=== PATIENT | male | born 1950 | race Caucasian/White ===

== ENCOUNTER 2016-08-13 10:36 | Inpatient (IN) | payer OTHER ==
[2016-08-10 12:11] LABS: BASOPHILS 0.3 %; BASOPHILS ABSOLUTE 0.03 10/3/uL (0.0-0.16); HEMATOCRIT 42.9 % (40.0-51.0); HEMOGLOBIN 14.3 g/dL (13.6-17.8); IMMATURE GRANULOCYTES 0.3 %; IMMATURE GRANULOCYTES ABSOLUTE 0.03 10/3/uL (0.0-0.11); LYMPHOCYTES 21.5 %; LYMPHOCYTES ABSOLUTE 2.13 10/3/uL (0.67-4.30); MEAN CORPUS HGB CONC 33.3 g/dL (32.0-36.0); MEAN CORPUSCULAR HEMOGLOB 26.8 pg (26.0-34.0); MEAN CORPUSCULAR VOLUME 80.3 fL (80-100); MEAN PLATELET VOLUME 9.9 fL (9.2-13.0); MONOCYTES 7.6 %; MONOCYTES ABSOLUTE 0.75 10/3/uL (0.21-1.20); NEUTROPHILS 65.3 %; NEUTROPHILS ABSOLUTE 6.47 10/3/uL (2.02-8.40); PLATELET COUNT 453 10/3/uL (150-400); RBC DISTRIBUTION WIDTH 15.7 % (12.0-16.0); RED CELL COUNT 5.34 10/6/uL (4.7-6.1); WHITE BLOOD CELLS 9.9 10/3/uL (4.5-10.5)
[2016-08-10 12:12] LABS: MANUAL DIFF NO %
[2016-08-10 12:25] LABS: PROTIME (NOT ORD) 13.2 SEC (12.0-14.5)
[2016-08-10 12:26] LABS: PARTIAL THROMBO TIME 35.4 SEC (22.5-37.2)
[2016-08-10 12:28] LABS: ALBUMIN 3.9 G/DL (3.5-5.0); ALKALINE PHOSPHATASE 72 U/L (45-117); BUN (BLOOD UREA NITROGEN) 23 MG/DL (6-23); CHLORIDE, SERUM 104 MMOL/L (96-112); CREATININE 1.08 MG/DL (0.70-1.30); GFR AFRICAN AMERICAN 82 ML/MIN (>=60); GFR NON AFRICAN AMERICAN 71 ML/MIN (>=60); POTASSIUM, SERUM 4.5 MMOL/L (3.5-5.3); SGOT(AST) 14 U/L (5-40); SGPT(ALT) 22 U/L (5-65); TOTAL BILIRUBIN 0.3 MG/DL (0-1.2)
[2016-08-10 12:31] LABS: CALCIUM, SERUM 10.3 MG/DL (8.5-10.4); CO2 (CARBON DIOXIDE) 27 MMOL/L (24-34); GLOBULIN 4.1 G/DL (2.5-4.1); GLUCOSE, SERUM 108 MG/DL (60-99); SODIUM, SERUM 140 MMOL/L (135-148)
--- NOTE | ~2016-08-13 | HP ---
History And Physical [place] [id number] [facility] [place]. [address] NAME: LIZ HAILE : 50 STATUS : ADM IN [facility]#: [id number] AGE: 66 ADM/REG DATE : 08/13/16 MR#: [id number] REPORT SERV DATE: 08/13/16 DICTATED BY: KAL SHEEHAN DATE: 08/13/16 REPORT STATUS : Draft TRANSCRIBED BY: MODL DATE: 08/13/16 DATE OF ADMISSION: 08/13/2016 CHIEF COMPLAINT: Right kidney mass. HISTORY OF PRESENT ILLNESS: Mr. Henriquez is a 66-year-old with recent gross hematuria. He had been having abdominal pain. He was evaluated in the office. CT scan was performed with a surprise finding of a 16 cm right upper pole renal mass. There was some shotty adenopathy, but no evidence of any gross metastatic disease. He has had intermittent hematuria. PAST MEDICAL HISTORY: Hypertension. PAST SURGICAL HISTORY: Pacemaker insertion in 2013. MEDICATIONS: Lisinopril and acyclovir. ALLERGIES: BACTRIM. SOCIAL HISTORY: . One pack-a-day smoker, he is trying to quit. FAMILY HISTORY: Lung cancer. REVIEW OF SYSTEMS: Positive for indigestion, tinnitus, and intermittent gross hematuria. Recently had an infected tooth on his right upper jaw. This was treated with Augmentin. No fevers. No dysuria. No chest pain. No shortness of breath. PHYSICAL EXAMINATION: VITAL SIGNS: Per intake sheet. GENERAL: Pleasant, chronically ill-appearing, 66-year-old appearing older than stated age, in no acute distress. HEENT: Sclerae anicteric. LUNGS: Clear. HEART: Regular rhythm. CHEST: Clear anteriorly. ABDOMEN: Soft, nontender, nondistended. Right upper quadrant shows a nontender mass. Bladder is not distended. EXTREMITIES: No lower extremity edema. NEUROLOGIC: He is oriented to person, place, time, and situation. LABORATORY DATA: Voided urine is clear. Creatinine 1.0. Hematocrit 43 and platelets 450. PSA from May was 5.96. PSA from July 6.6 with a percentage free PSA of 25. IMAGING: CT scan dated 07/24/2016 shows a heterogeneous 16 cm mass at right upper pole of the kidney. There is no renal vein involvement. There is perinephric stranding as well as scattered lymph nodes, all less than 1 cm. History And Physical [facility] [address] [place]. [address] NAME: LIZ HAILE : 50 STATUS : ADM IN PAT#: [id number] AGE: 66 ADM/REG DATE : 08/13/16 MR#: [id number] REPORT SERV DATE: 08/13/16 DICTATED BY: KAL SHEEHAN DATE: 08/13/16 REPORT STATUS : Draft TRANSCRIBED BY: MODL DATE: 08/13/16 IMPRESSION: 1. Right renal mass, likely T3 N0 M0 renal cell carcinoma. 2. Gross hematuria likely secondary to #1. 3. Elevated PSA. PLAN: 1. Mr. Haile understands the likely diagnosis of a locally advanced renal cell carcinoma. He will undergo right open radical nephrectomy. I used a chevron incision for exposure. Risks of bleeding, infection, tumor recurrence, injury to nearby organs, and benign pathologic findings have been discussed. He agrees to proceed. 2. His PSAs elevated in lieu of the large right renal mass. We have decided to merely not to pursue prostate needle biopsy at this time. He will have a PSA repeated in six months or so, assuming that he is doing well from his renal surgery. [facility]/MILADIS Kal Sheehan M.D. / [id number] CC: Meeta Trujillo DO
--- NOTE | ~2016-08-13 | OP ---
Record Of Operation [facility] [address] [place]. [address] NAME: LIZ HAILE : 50 STATUS : ADM IN PAT#: [id number] AGE: 66 ADM/REG DATE : 08/13/16 MR#: [id number] REPORT SERV DATE: 08/13/16 DICTATED BY: KAL SHEEHAN DATE: 08/13/16 REPORT STATUS : Draft TRANSCRIBED BY: MODL DATE: 08/13/16 DATE OF PROCEDURE: 08/13/2016 PREOPERATIVE DIAGNOSIS: Right renal mass. POSTOPERATIVE DIAGNOSIS: Right renal mass. PROCEDURE PERFORMED: Right open radical nephrectomy. SURGEON: Kal Sheehan M.D. CATERING TRUCK DRIVER: Mrs. Granadoser. ANESTHESIA: General. ESTIMATED BLOOD LOSS: 600 mL. COMPLICATIONS: Pleurotomy/rent in the diaphragm was closed primarily. SPECIMEN: Right kidney with proximal ureter and adrenal gland. DRAINS: Waldrop catheter, Yasmany Jackson. INDICATION: Mr. Haile is a 66-year-old, who was evaluated for gross hematuria. He is found to have a large 16 cm right upper pole renal mass. There was shoddy adenopathy, but no gross metastatic disease. His creatinine is 1.0. Platelet count is elevated. He presents for right open radical nephrectomy. TECHNIQUE: Informed consent was obtained, he received Ancef preop, he was brought to the operating, and general anesthesia was administered. Waldrop catheter was placed. He was kept supine in the bed and was flexed. A chevron incision was made with Bovie, the peritoneal cavity was entered, having divided the abdominal wall musculature. There was no gross peritoneal disease. The liver was draped over the large right kidney. I incised the white line of Toldt to mobilize the ascending and transverse colon. The bowel was packed away. Dissection was carried out anteriorly toward the renal hilum. Once the hilar vessels were identified, I dissected inferiorly along the vena cava. The ureter was identified, it was clipped and divided. There were some simple cysts inferiorly in the kidney and these were drained. At the renal hilum, I dissected several branches of the renal vein. These were tied off and were clipped. The main renal vein was circumferentially mobilized. Posterior to this, I palpated two renal arteries with some difficulty. These were both mobilized and transected with a vascular load of the Endo-YARELY. Next, I took down the lateral attachments up to the upper pole of the kidney. The mass was very large, it actually was fused to the underside of the liver. This dissection was performed with Bovie and Harmonic scalpel. At this point, I divided the renal vein, this hilar transection was also hemostatic. The superomedial dissection was carried out just lateral to the vena cava. The adrenal vein was doubly clipped and divided. The adrenal gland was taken with the specimen. The remaining Record Of Operation [facility] [address] [place] [address] NAME: LIZ HAILE : 50 STATUS : ADM IN PAT#: [id number] AGE: 66 ADM/REG DATE : 08/13/16 MR#: [id number] REPORT SERV DATE: 08/13/16 DICTATED BY: KAL SHEEHAN DATE: 08/13/16 REPORT STATUS : Draft TRANSCRIBED BY: MODL DATE: 08/13/16 of the upper pole of the kidney was adherent to both the liver and to the diaphragm posteriorly. A 3 cm rent in the diaphragm was created during this dissection. Visibly normal lung was visualized. The remaining attachments were divided with Harmonic scalpel and clips. The specimen was marked with a long suture at the liver margin. The wound was irrigated. Hemostasis was confirmed. I closed the rent in the diaphragm/pleura with running #1 Vicryl. A red rubber catheter was placed with the tip and any pleural air was evacuated with a water seal. The sutures were tied as the red rubber was removed. Sponge and needle counts were correct. I placed Surgicel against the portion of the liver that had been adherent to the upper pole of the kidney. Hemostasis was confirmed. I placed a Yasmany-Jackson through a separate stab incision inferiorly. This was placed in the right renal fossa. I closed the abdominal wall fascia in two layers with running #1 PDS suture, with additional 0 Vicryl internal retention sutures. The wound was irrigated at all levels of closure. The skin was closed with clips. He was taken the recovery room still intubated. We will check a chest x-ray prior to extubation. [facility] Kal Sheehan M.D. / [id number] CC: Kal Sheehan M.D.
--- NOTE | ~2016-08-13 | CN ---
Consultation Report [facility] [address] [place]. [address] NAME: LIZ HERNANDEZ : 50 STATUS : ADM IN PAT#: [id number] AGE: 66 ADM/REG DATE : 08/13/16 MR#: [id number] REPORT SERV DATE: 08/24/16 DICTATED BY: ROLANDA SIMON DATE: 08/24/16 REPORT STATUS : Draft TRANSCRIBED BY: MODL DATE: 08/24/16 INFECTIOUS DISEASE CONSULT DATE OF CONSULTATION: REFERRING PHYSICIAN: Dr. Roberts. REASON FOR EVALUATION: Treatment of left arm possible cellulitis. HISTORY OF PRESENT ILLNESS: The patient is a 66-year-old male who has history of hypertension, a pacemaker. 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 Postoperatively, he has had difficulty with ileus that is better, a sore tooth for which he received a few days of Augmentin in the last two days for a painful left upper arm at the site of an IV that infiltrated according to his daughter while he was getting potassium (his daughter is a nurse). He continues to have pain, swelling, and redness there that is slightly expanded in the past few days. There has been no open lesions, no drainage. He has not had any fevers or chills, but his white blood cell count is mildly elevated. He has also begun to experience the redness and pain at the IV site in the other arm now. PAST MEDICAL HISTORY: Otherwise unremarkable. MEDICATIONS: He has been started yesterday on doxycycline. The Augmentin has been stopped. ALLERGIES: HE IS ALLERGIC TO SULFA, WHICH CAUSES A RASH. SOCIAL HISTORY: He is retired, . Family is with him in the room. He does smoke. No history of alcohol or substance abuse. FAMILY HISTORY: Noncontributory. PHYSICAL EXAMINATION: GENERAL: Nontoxic adult, male, in no acute distress. Alert and oriented x3. VITAL SIGNS: His most recent temperature was 98.7, pulse 61, respirations 18, blood pressure 132/64, weight 85 kg. HEENT: Sclerae clear. No oral lesions. LUNGS: Clear. HEART: Regular rate and rhythm. ABDOMEN: Soft, nontender. Positive bowel sounds. EXTREMITIES: The left upper arm shows about 6 cm of induration and redness. It is tender. I do not feel any fluctuance, I do not feel a cord. There is no drainage. No other acute- appearing lesions on the skin or extremities. Consultation Report [facility] [address] [place]. [address] NAME: LIZ HERNANDEZ : 50 STATUS : ADM IN PAT#: [id number] AGE: 66 ADM/REG DATE : 08/13/16 MR#: [id number] REPORT SERV DATE: 08/24/16 DICTATED BY: ROLANDA SIMON DATE: 08/24/16 REPORT STATUS : Draft TRANSCRIBED BY: MILADIS DATE: 08/24/16 LABORATORY DATA: His white blood cell count was, initially when he came in, 10.2, it did rise to 19.6 after surgery, it was back down by 08/18/2016 to 9.4, 11.7 on 08/21/2016, 12.1 on the 08/22/2016, 13.3 on the 08/23/2016, 14.9 today with hematocrit 22.7, platelets 572, 68 segs, 5% bands on the diff. BUN and creatinine 15 and 1.37. Blood cultures were checked yesterday afternoon and those are negative at 24 hours. IMPRESSION: I suspect that this is a chemical thrombophlebitis from the potassium and not a true infection; however, the rising white count is concerning. RECOMMENDATIONS: 1. We will follow up with the blood cultures tomorrow. 2. Cover with Zyvox for now and also remove his other IV, so this does not start another thrombophlebitis. 3. Discussed with the nurse, I asked her to apply heat to the site. 4. Finally, I will follow the patient with you. I appreciate very much your consulting on this patient. [facility]IL[facility] Rolanda Simon M.D. / [id number] CC: Lv Roberts M.D.
--- NOTE | ~2016-08-13 | DS ---
Discharge Summary [facility] [address] [place]. [address] NAME: LIZ HERNANDEZ : 50 STATUS : DIS IN PAT#: [id number] AGE: 66 ADM/REG DATE : 08/13/16 MR#: [id number] REPORT SERV DATE: 09/04/16 DICTATED BY: KAL ROBERTS DATE: 09/04/16 REPORT STATUS : Draft TRANSCRIBED BY: MODLoyd DATE: 09/04/16 Data Collection from hospitalization DISCHARGE DIAGNOSES: 1. Right renal mass. 2. Hypertension. 3. Bradycardia. 4. Former tobacco. CONSULTATIONS: 1. Johnny Denise M.D. 2. Ramiro Gaytan MD. PROCEDURES: Right open radical nephrectomy on 08/13/2016. 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 No tumor seen. DISCHARGE MEDICATIONS: Tylenol caplet 1000 mg every four hours as needed, Zovirax 400 mg twice a day-do not resume for two weeks, vitamin C 2000 mg daily-do not resume for two weeks, Zyvox 600 mg every 12 hours, Prinivil 20 mg daily, Centrum tablets one tablet daily, Percocet 7.5/325 one tablet every six hours as needed. CONDITION AT DISCHARGE: Stable. DISPOSITION: The patient was discharged home on a soft diet with activities as instructed. He would follow up with me on 09/04/2016, and will follow up with his primary care provider as needed. HOSPITAL COURSE: This is a 66-year-old man, who has had a recent gross hematuria. He had been having abdominal pain. He was evaluated in the office. A CT scan was performed with a surprise finding of a 16 cm right upper pole renal mass. There was some shoddy adenopathy, but no evidence of any gross metastatic disease. He has had intermittent hematuria. The right renal mass was felt likely to be T3, N0, M0 renal cell carcinoma. Treatment options were discussed and it was elected to proceed with surgical intervention. He was admitted to the hospital at this time for further evaluation and treatment. Upon admission, he was taken to the operating room, where he underwent the above-mentioned procedure. He tolerated this well. There were no complications. On postop day #1, he had good pain control. Chest x-ray showed no pneumothorax. His lungs were clear. Dulcolax was given. Heparin was continued. On postop day #2, his epidural rate was increased, due to inadequate analgesia. He was ambulatory. His diet was advanced. On 08/16/2016, he did complain of hiccups. His white count was 19.6. White blood cell count remained elevated. There were no obvious signs of infection. The epidural catheter was removed and the tip was intact. On 08/17/2016, he still complained of hiccups. He was passing flatus. Over the next couple Discharge Summary [place] [id number] [facility] [place]. [address] NAME: LIZ HERNANDEZ : 50 STATUS : DIS IN PAT#: [id number] AGE: 66 ADM/REG DATE : 08/13/16 MR#: [id number] REPORT SERV DATE: 09/04/16 DICTATED BY: KAL ROBERTS DATE: 09/04/16 REPORT STATUS : Draft TRANSCRIBED BY: MILADIS DATE: 09/04/16 of days, he continued to do well. He did have a bowel movement. Blood cell count decreased to 9.4. Pathology results were reviewed. He had a couple of episodes of vomiting. The NG tube was placed. He was felt to have an ileus versus partial small bowel obstruction. On 08/21/2016, he said he was feeling better. He was seen by Dr. Ramiro Gaytan. At this time, the patient's chief complaint was nausea, vomiting, questionable small bowel obstruction versus ileus. 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 He was convalescing well from surgery. On the day previously he had started having projectile vomiting and an NG tube had been placed. He now felt better. He had no nausea or vomiting. Abdominal pain was improving. He did not feel grossly distended. He was passing flatus. His bowel movements were loose. White blood cell count was 11.7. Creatinine level was 1.5. We would keep the NG tube to low intermittent suction. We would await return of bowel function. NG tube clamping trial was going to be performed. He would be re-evaluated with radiography and physical exam. The next day, he had a couple of bowel movements. He had no nausea. The NG tube was clamped. His abdomen was soft. He had positive bowel sounds. He was tolerating his diet. On 08/23/2016, white blood cell count continued to increase. He was eating well. He had no abdominal pain. The infiltration site of a previous IV in his left upper arm was inflamed and very tender. The erythema had advanced around the arm since the day previously despite ice packs and moving the IV. He was afebrile. Blood cultures were obtained. Augmentin was started. White blood cell count was 13. The next day, he was seen by Dr. Johnny Denise regarding treatment of left arm possible cellulitis. Postoperatively, he had difficulty with ileus which had improved. He had a sore tooth for which he had received a few days of Augmentin, and over the past two days, he has a painful left upper arm at the IV site. According to his daughter, he has been receiving potassium. He continued to have pain, swelling, and redness there that was slightly expanded over the past few days. There were no open lesions or drainage. He had also started to experience the redness and pain at the IV site in the other arm at this time. White count was now 14.9. It was suspected that this was chemical thrombophlebitis from the potassium and not a true infection, however, the rising white count was concerning. Followup blood cultures would be checked. He would also be covered with Zyvox for now and we would remove the other IV, so, this does not start another thrombophlebitis. Heat was going to be applied to the site. Discharge planning was performed. On 08/25/2016, he was feeling better. He was afebrile. White count was 13.5. Discharge instructions were given. Due to his improved and stable condition, he was discharged home with the above-stated instructions. Information collected by: Denise Hansen I submit the above information as my discharge summary. [facility] Kal Roberts M.D. / [id number] CC: Kal Roberts M.D. Discharge Summary [address] [address] NAME: LIZ HERNANDEZ : 50 STATUS : DIS IN PAT#: [id number] AGE: 66 ADM/REG DATE : 08/13/16 MR#: [id number] REPORT SERV DATE: 09/04/16 DICTATED BY: KAL ROBERTS DATE: 09/04/16 REPORT STATUS : Draft TRANSCRIBED BY: MODL DATE: 09/04/16 DO Ramiro Andujar MD Mark Anderson, M.D.
--- NOTE | ~2016-08-13 | CN ---
Consultation Report [facility] [address] [place]. [address] NAME: LIZ HERNANDEZ : 50 STATUS : ADM IN [facility]#: [id number] AGE: 66 ADM/REG DATE : 08/13/16 MR#: [id number] REPORT SERV DATE: 08/21/16 DICTATED BY: OSWALDO GAYTAN DATE: 08/21/16 REPORT STATUS : Draft TRANSCRIBED BY: MODL DATE: 08/21/16 GENERAL SURGERY CONSULTATION AND H AND P DATE OF CONSULTATION: 08/21/2016 CHIEF COMPLAINT: Nausea, vomiting, questionable small-bowel obstruction versus ileus. HISTORY OF PRESENT ILLNESS: This is a 66-year-old male, who is now postop day 8 from an open right radical nephrectomy. Pathology revealed oncocytoma. The patient was convalescing well from the surgery and then yesterday, he began to have projectile vomiting, and NG tube was placed. The patient now feels better, having no nausea or vomiting. Abdominal pain is improving from the surgery. He does not feel grossly distended. He is passing flatus, and he had three bowel movements a day per the patient. They were loose. He has no fever or chills. No shortness of breath or chest pain. REVIEW OF SYSTEMS: All systems reviewed and negative except as mentioned in the HPI. ALLERGIES: BACTRIM. PAST MEDICAL HISTORY: Hypertension and bradycardia, tooth abscess. PAST SURGICAL HISTORY: Pacemaker insertion in 2013 for bradycardia, EGD for ulcer disease, right inguinal hernia repair, and umbilical hernia repair and procedure listed above. SOCIAL HISTORY: Positive for tobacco for 20 plus years. No alcohol. No drugs. He is a evan, does construction work. FAMILY HISTORY: His mother had lung cancer. His father had coronary artery disease. MEDICATIONS: Lisinopril and acyclovir. REVIEW OF SYSTEMS: A 12 systems reviewed and negative except as mentioned in the HPI. PHYSICAL EXAMINATION: VITAL SIGNS: Temperature is 98.7, blood pressure 160/68, pulse is 70, O2 sats of 96% on room air. GENERAL: A well-developed, well-nourished, no acute distress, white male. HEENT: Normocephalic and atraumatic. PERRLA. EOMI. Mucous membranes are moist. NECK: No lymphadenopathy. Trachea midline. CARDIOVASCULAR: Regular rate and rhythm. LUNGS: Clear to auscultation bilaterally. ABDOMEN: Soft, nondistended. It is protuberant and has appropriate tenderness to palpation Consultation Report [facility] [address] [place]. [address] NAME: LIZ HERNANDEZ : 50 STATUS : ADM IN PAT#: [id number] AGE: 66 ADM/REG DATE : 08/13/16 MR#: [id number] REPORT SERV DATE: 08/21/16 DICTATED BY: OSWALDO GAYTAN DATE: 08/21/16 REPORT STATUS : Draft TRANSCRIBED BY: MODLoyd DATE: 08/21/16 secondary to surgery. Bowel sounds are hypoactive. EXTREMITIES: No clubbing, cyanosis, or edema. 2+ pulses. MUSCULOSKELETAL: Moves all extremities well. NEURO: Cranial nerves 2 through 12 intact. A and O x3. LABS: Multiple x-rays has been performed which shows small bowel dilation and some air fluid levels. Today CBC; 11.7, hematocrit 25.2, platelets 580. Electrolytes; sodium 139, potassium 3.7, chloride 104, bicarb 28, BUN 22, creatinine 1.5, glucose 120, calcium 8.7, magnesium 2.2. ASSESSMENT AND PLAN: This is a 66-year-old male, who has most likely an ileus. PLAN: Keep n.p.o., keep NG tube to low intermittent more suction. We will await return of bowel function. We will start patient on NG tube clamping trial and see how he does and re- evaluate with radiography and physical exam. DICTATED BY: MD TEJAS [facility]/MILADIS Oswaldo Gaytan MD / [id number] CC: Meeta Trujillo DO
[~2016-08-13 10:36] MED LIST: ACET500CAP PO; CENTRUM PO; PRIN20 PO; VALTREX5 PO; VITC500 PO; ZOVIRAX400 MG PO
[2016-08-14 06:51] LABS: BASOPHILS 0.2 %; BASOPHILS ABSOLUTE 0.02 10/3/uL (0.0-0.16); EOSINOPHILS 0.5 %; EOSINOPHILS ABSOLUTE 0.05 10/3/uL (0.0-0.53); IMMATURE GRANULOCYTES 0.4 %; IMMATURE GRANULOCYTES ABSOLUTE 0.04 10/3/uL (0.0-0.11); LYMPHOCYTES 18.1 %; LYMPHOCYTES ABSOLUTE 1.84 10/3/uL (0.67-4.30); MEAN CORPUS HGB CONC 32.2 g/dL (32.0-36.0); MEAN CORPUSCULAR HEMOGLOB 26.3 pg (26.0-34.0); MEAN CORPUSCULAR VOLUME 81.8 fL (80-100); MEAN PLATELET VOLUME 9.9 fL (9.2-13.0); MONOCYTES 7.9 %; MONOCYTES ABSOLUTE 0.81 10/3/uL (0.21-1.20); NEUTROPHILS 72.9 %; NEUTROPHILS ABSOLUTE 7.43 10/3/uL (2.02-8.40); PLATELET COUNT 345 10/3/uL (150-400); RBC DISTRIBUTION WIDTH 15.6 % (12.0-16.0); WHITE BLOOD CELLS 10.2 10/3/uL (4.5-10.5)
[2016-08-14 06:53] LABS: CHLORIDE, SERUM 108 MMOL/L (96-112); CREATININE 1.56 MG/DL (0.70-1.30); GFR AFRICAN AMERICAN 53 ML/MIN (>=60); GFR NON AFRICAN AMERICAN 46 ML/MIN (>=60); GLUCOSE, SERUM 102 MG/DL (60-99); HEMATOCRIT 34.5 % (40.0-51.0); HEMOGLOBIN 11.1 g/dL (13.6-17.8); MANUAL DIFF NO %; POTASSIUM, SERUM 4.1 MMOL/L (3.5-5.3); RED CELL COUNT 4.22 10/6/uL (4.7-6.1); SODIUM, SERUM 139 MMOL/L (135-148)
[2016-08-14 06:55] LABS: BUN (BLOOD UREA NITROGEN) 19 MG/DL (6-23); CO2 (CARBON DIOXIDE) 22 MMOL/L (24-34)
[2016-08-15 07:34] LABS: HEMATOCRIT 34.3 % (40.0-51.0); HEMOGLOBIN 11.1 g/dL (13.6-17.8)
[2016-08-15 07:47] LABS: BUN (BLOOD UREA NITROGEN) 15 MG/DL (6-23); CALCIUM, SERUM 8.5 MG/DL (8.5-10.4); CHLORIDE, SERUM 106 MMOL/L (96-112); CO2 (CARBON DIOXIDE) 22 MMOL/L (24-34); CREATININE 1.64 MG/DL (0.70-1.30); GFR AFRICAN AMERICAN 50 ML/MIN (>=60); GFR NON AFRICAN AMERICAN 43 ML/MIN (>=60); GLUCOSE, SERUM 128 MG/DL (60-99); POTASSIUM, SERUM 4.4 MMOL/L (3.5-5.3); SODIUM, SERUM 136 MMOL/L (135-148)
[2016-08-16 06:27] LABS: BASOPHILS 0.1 %; BASOPHILS ABSOLUTE 0.02 10/3/uL (0.0-0.16); EOSINOPHILS 0.2 %; EOSINOPHILS ABSOLUTE 0.03 10/3/uL (0.0-0.53); HEMATOCRIT 33.3 % (40.0-51.0); HEMOGLOBIN 10.9 g/dL (13.6-17.8); IMMATURE GRANULOCYTES 0.4 %; IMMATURE GRANULOCYTES ABSOLUTE 0.08 10/3/uL (0.0-0.11); LYMPHOCYTES 9.2 %; MANUAL DIFF NO %; MEAN CORPUS HGB CONC 32.7 g/dL (32.0-36.0); MEAN CORPUSCULAR HEMOGLOB 26.1 pg (26.0-34.0); MEAN CORPUSCULAR VOLUME 79.9 fL (80-100); MEAN PLATELET VOLUME 9.7 fL (9.2-13.0); MONOCYTES 9.2 %; NEUTROPHILS 80.9 %; NEUTROPHILS ABSOLUTE 15.83 10/3/uL (2.02-8.40); PLATELET COUNT 380 10/3/uL (150-400); RBC DISTRIBUTION WIDTH 15.7 % (12.0-16.0); RED CELL COUNT 4.17 10/6/uL (4.7-6.1); WHITE BLOOD CELLS 19.6 10/3/uL (4.5-10.5)
[2016-08-16 06:38] LABS: BUN (BLOOD UREA NITROGEN) 27 MG/DL (6-23); CHLORIDE, SERUM 104 MMOL/L (96-112); CO2 (CARBON DIOXIDE) 25 MMOL/L (24-34); CREATININE 2.05 MG/DL (0.70-1.30); GFR AFRICAN AMERICAN 38 ML/MIN (>=60); GFR NON AFRICAN AMERICAN 33 ML/MIN (>=60); GLUCOSE, SERUM 131 MG/DL (60-99); POTASSIUM, SERUM 4.7 MMOL/L (3.5-5.3); SODIUM, SERUM 137 MMOL/L (135-148)
[2016-08-17 05:36] LABS: BASOPHILS 0.1 %; BASOPHILS ABSOLUTE 0.02 10/3/uL (0.0-0.16); EOSINOPHILS 0.7 %; EOSINOPHILS ABSOLUTE 0.12 10/3/uL (0.0-0.53); HEMOGLOBIN 9.4 g/dL (13.6-17.8); IMMATURE GRANULOCYTES 0.5 %; LYMPHOCYTES 8.9 %; LYMPHOCYTES ABSOLUTE 1.61 10/3/uL (0.67-4.30); MEAN CORPUS HGB CONC 32.4 g/dL (32.0-36.0); MEAN CORPUSCULAR HEMOGLOB 25.9 pg (26.0-34.0); MEAN CORPUSCULAR VOLUME 79.9 fL (80-100); MEAN PLATELET VOLUME 10.3 fL (9.2-13.0); MONOCYTES 9.6 %; MONOCYTES ABSOLUTE 1.74 10/3/uL (0.21-1.20); NEUTROPHILS 80.2 %; PLATELET COUNT 415 10/3/uL (150-400); RBC DISTRIBUTION WIDTH 15.4 % (12.0-16.0); RED CELL COUNT 3.63 10/6/uL (4.7-6.1); WHITE BLOOD CELLS 18.2 10/3/uL (4.5-10.5)
[2016-08-17 05:41] LABS: MANUAL DIFF NO %
[2016-08-18 07:02] LABS: BASOPHILS 0.1 %; BASOPHILS ABSOLUTE 0.01 10/3/uL (0.0-0.16); EOSINOPHILS 2.5 %; EOSINOPHILS ABSOLUTE 0.24 10/3/uL (0.0-0.53); HEMOGLOBIN 8.6 g/dL (13.6-17.8); IMMATURE GRANULOCYTES 0.3 %; IMMATURE GRANULOCYTES ABSOLUTE 0.03 10/3/uL (0.0-0.11); LYMPHOCYTES 14.3 %; LYMPHOCYTES ABSOLUTE 1.35 10/3/uL (0.67-4.30); MEAN CORPUS HGB CONC 33.1 g/dL (32.0-36.0); MEAN CORPUSCULAR HEMOGLOB 26.5 pg (26.0-34.0); MEAN PLATELET VOLUME 9.5 fL (9.2-13.0); MONOCYTES 9.8 %; MONOCYTES ABSOLUTE 0.92 10/3/uL (0.21-1.20); NEUTROPHILS ABSOLUTE 6.88 10/3/uL (2.02-8.40); PLATELET COUNT 454 10/3/uL (150-400); RBC DISTRIBUTION WIDTH 15.4 % (12.0-16.0); RED CELL COUNT 3.25 10/6/uL (4.7-6.1)
[2016-08-18 07:06] LABS: MANUAL DIFF NO %; WHITE BLOOD CELLS 9.4 10/3/uL (4.5-10.5)
[2016-08-18 07:09] LABS: CALCIUM, SERUM 8.6 MG/DL (8.5-10.4); CHLORIDE, SERUM 104 MMOL/L (96-112); CO2 (CARBON DIOXIDE) 24 MMOL/L (24-34); CREATININE 1.69 MG/DL (0.70-1.30); GFR AFRICAN AMERICAN 48 ML/MIN (>=60); GFR NON AFRICAN AMERICAN 41 ML/MIN (>=60); POTASSIUM, SERUM 4.3 MMOL/L (3.5-5.3); SODIUM, SERUM 137 MMOL/L (135-148)
[2016-08-18 07:10] LABS: BUN (BLOOD UREA NITROGEN) 40 MG/DL (6-23); GLUCOSE, SERUM 95 MG/DL (60-99)
[2016-08-19 06:31] LABS: HEMATOCRIT 25.5 % (40.0-51.0); HEMOGLOBIN 8.3 g/dL (13.6-17.8)
[2016-08-21 06:35] LABS: HEMATOCRIT 25.2 % (40.0-51.0); HEMOGLOBIN 8.4 g/dL (13.6-17.8); MEAN CORPUS HGB CONC 33.3 g/dL (32.0-36.0); MEAN CORPUSCULAR HEMOGLOB 26.3 pg (26.0-34.0); MEAN CORPUSCULAR VOLUME 78.8 fL (80-100); MEAN PLATELET VOLUME 8.9 fL (9.2-13.0); PLATELET COUNT 580 10/3/uL (150-400); RBC DISTRIBUTION WIDTH 15.3 % (12.0-16.0); WHITE BLOOD CELLS 11.7 10/3/uL (4.5-10.5)
[2016-08-21 06:39] LABS: MANUAL DIFF YES %
[2016-08-21 06:50] LABS: CALCIUM, SERUM 8.7 MG/DL (8.5-10.4); CHLORIDE, SERUM 104 MMOL/L (96-112); CO2 (CARBON DIOXIDE) 28 MMOL/L (24-34); GFR AFRICAN AMERICAN 55 ML/MIN (>=60); GFR NON AFRICAN AMERICAN 48 ML/MIN (>=60); POTASSIUM, SERUM 3.7 MMOL/L (3.5-5.3); SODIUM, SERUM 139 MMOL/L (135-148)
[2016-08-21 06:51] LABS: BUN (BLOOD UREA NITROGEN) 22 MG/DL (6-23); GLUCOSE, SERUM 120 MG/DL (60-99)
[2016-08-21 07:11] LABS: BAND NEUTROPHILS 11 %; EOSINOPHILS 1 %; EOSINOPHILS ABSOLUTE (CALC) 0.12 10/3/uL (0.0-0.53); IMMATURE GRANS ABSOLUTE (CALC) 0.12 10/3/uL (0.0-0.11); LYMPHOCYTES 6 %; METAMYELOCYTES 1 %; MONOCYTES 5 %; MONOCYTES ABSOLUTE (CALC) 0.59 10/3/uL (0.21-1.20); NEUTROPHILS ABSOLUTE (CALC) 10.18 10/3/uL (2.02-8.40); PLATELET ESTIMATE SLT INC (ADEQUATE); RBC MORPHOLOGY NORM (NORMAL); SEGMENTED NEUTROPHIL (0) 76 %; TOTAL NUCLEATED CELLS 100
[2016-08-22 06:48] LABS: HEMATOCRIT 25.2 % (40.0-51.0); HEMOGLOBIN 8.4 g/dL (13.6-17.8); MEAN CORPUS HGB CONC 33.3 g/dL (32.0-36.0); MEAN CORPUSCULAR HEMOGLOB 26.8 pg (26.0-34.0); MEAN CORPUSCULAR VOLUME 80.3 fL (80-100); MEAN PLATELET VOLUME 8.8 fL (9.2-13.0); PLATELET COUNT 602 10/3/uL (150-400); RBC DISTRIBUTION WIDTH 15.3 % (12.0-16.0); RED CELL COUNT 3.14 10/6/uL (4.7-6.1); WHITE BLOOD CELLS 12.1 10/3/uL (4.5-10.5)
[2016-08-22 06:52] LABS: MANUAL DIFF YES %
[2016-08-22 07:05] LABS: CALCIUM, SERUM 8.4 MG/DL (8.5-10.4); CHLORIDE, SERUM 107 MMOL/L (96-112); CO2 (CARBON DIOXIDE) 27 MMOL/L (24-34); CREATININE 1.39 MG/DL (0.70-1.30); GFR AFRICAN AMERICAN 61 ML/MIN (>=60); GFR NON AFRICAN AMERICAN 52 ML/MIN (>=60); GLUCOSE, SERUM 114 MG/DL (60-99); POTASSIUM, SERUM 3.7 MMOL/L (3.5-5.3); SGOT(AST) 15 U/L (5-40); SGPT(ALT) 32 U/L (5-65); SODIUM, SERUM 141 MMOL/L (135-148); TOTAL BILIRUBIN 0.2 MG/DL (0-1.2)
[2016-08-22 07:06] LABS: A/G RATIO 0.6 (0.7-1.9); ALBUMIN 2.1 G/DL (3.5-5.0); ALKALINE PHOSPHATASE 90 U/L (45-117); BUN (BLOOD UREA NITROGEN) 15 MG/DL (6-23); GLOBULIN 3.6 G/DL (2.5-4.1); TOTAL PROTEIN 5.7 G/DL (6.0-8.5)
[2016-08-22 07:19] LABS: BAND NEUTROPHILS 11 %; EOSINOPHILS 2 %; EOSINOPHILS ABSOLUTE (CALC) 0.24 10/3/uL (0.0-0.53); IMMATURE GRANS ABSOLUTE (CALC) 0.36 10/3/uL (0.0-0.11); LYMPHOCYTES 17 %; LYMPHOCYTES ABSOLUTE (CALC) 2.06 10/3/uL (0.67-4.30); METAMYELOCYTES 3 %; MONOCYTES 1 %; MONOCYTES ABSOLUTE (CALC) 0.12 10/3/uL (0.21-1.20); NEUTROPHILS ABSOLUTE (CALC) 9.32 10/3/uL (2.02-8.40); PLATELET ESTIMATE INC (ADEQUATE); SEGMENTED NEUTROPHIL (0) 66 %; TOTAL NUCLEATED CELLS 100
[2016-08-22 07:20] LABS: POLYCHROMASIA 1+ (2-5/OIF) (0-1/OIF)
[2016-08-23 05:27] LABS: HEMATOCRIT 25.6 % (40.0-51.0); HEMOGLOBIN 8.3 g/dL (13.6-17.8); MEAN CORPUS HGB CONC 32.4 g/dL (32.0-36.0); MEAN CORPUSCULAR HEMOGLOB 26.3 pg (26.0-34.0); MEAN PLATELET VOLUME 8.6 fL (9.2-13.0); PLATELET COUNT 642 10/3/uL (150-400); RED CELL COUNT 3.16 10/6/uL (4.7-6.1); WHITE BLOOD CELLS 13.3 10/3/uL (4.5-10.5)
[2016-08-23 05:30] LABS: MANUAL DIFF YES %
[2016-08-23 05:45] LABS: BUN (BLOOD UREA NITROGEN) 15 MG/DL (6-23); CALCIUM, SERUM 8.5 MG/DL (8.5-10.4); CHLORIDE, SERUM 106 MMOL/L (96-112); CO2 (CARBON DIOXIDE) 26 MMOL/L (24-34); CREATININE 1.46 MG/DL (0.70-1.30); GFR AFRICAN AMERICAN 57 ML/MIN (>=60); GFR NON AFRICAN AMERICAN 49 ML/MIN (>=60); GLUCOSE, SERUM 111 MG/DL (60-99); POTASSIUM, SERUM 3.6 MMOL/L (3.5-5.3); SODIUM, SERUM 139 MMOL/L (135-148)
[2016-08-23 06:27] LABS: BAND NEUTROPHILS 12 %; BASOPHILS 1 %; BASOPHILS ABSOLUTE (CALC) 0.13 10/3/uL (0.0-0.16); EOSINOPHILS 1 %; EOSINOPHILS ABSOLUTE (CALC) 0.13 10/3/uL (0.0-0.53); HYPOCHROMIA 1+ (3-10/OIF) (0-2/OIF); IMMATURE GRANS ABSOLUTE (CALC) 0.13 10/3/uL (0.0-0.11); LYMPHOCYTES 19 %; LYMPHOCYTES ABSOLUTE (CALC) 2.53 10/3/uL (0.67-4.30); METAMYELOCYTES 1 %; MONOCYTES 2 %; MONOCYTES ABSOLUTE (CALC) 0.27 10/3/uL (0.21-1.20); NEUTROPHILS ABSOLUTE (CALC) 10.11 10/3/uL (2.02-8.40); PLATELET ESTIMATE INC (ADEQUATE); SEGMENTED NEUTROPHIL (0) 64 %; TOTAL NUCLEATED CELLS 100
[2016-08-23 06:28] LABS: POLYCHROMASIA 1+ (2-5/OIF) (0-1/OIF)
[2016-08-24 06:55] LABS: HEMOGLOBIN 7.5 g/dL (13.6-17.8); MEAN CORPUSCULAR HEMOGLOB 26.5 pg (26.0-34.0); MEAN CORPUSCULAR VOLUME 80.2 fL (80-100); MEAN PLATELET VOLUME 8.5 fL (9.2-13.0); PLATELET COUNT 572 10/3/uL (150-400); RBC DISTRIBUTION WIDTH 15.1 % (12.0-16.0); RED CELL COUNT 2.83 10/6/uL (4.7-6.1); WHITE BLOOD CELLS 14.9 10/3/uL (4.5-10.5)
[2016-08-24 06:59] LABS: HEMATOCRIT 22.7 % (40.0-51.0); MANUAL DIFF YES %
[2016-08-24 07:08] LABS: BUN (BLOOD UREA NITROGEN) 15 MG/DL (6-23); CALCIUM, SERUM 8.3 MG/DL (8.5-10.4); CHLORIDE, SERUM 109 MMOL/L (96-112); CO2 (CARBON DIOXIDE) 23 MMOL/L (24-34); CREATININE 1.37 MG/DL (0.70-1.30); GFR AFRICAN AMERICAN 62 ML/MIN (>=60); GFR NON AFRICAN AMERICAN 53 ML/MIN (>=60); GLUCOSE, SERUM 108 MG/DL (60-99); POTASSIUM, SERUM 4.1 MMOL/L (3.5-5.3); SODIUM, SERUM 139 MMOL/L (135-148)
[2016-08-24 07:21] LABS: BAND NEUTROPHILS 5 %; EOSINOPHILS 1 %; EOSINOPHILS ABSOLUTE (CALC) 0.15 10/3/uL (0.0-0.53); IMMATURE GRANS ABSOLUTE (CALC) 0.15 10/3/uL (0.0-0.11); LYMPHOCYTES 17 %; LYMPHOCYTES ABSOLUTE (CALC) 2.53 10/3/uL (0.67-4.30); METAMYELOCYTES 1 %; MONOCYTES 8 %; MONOCYTES ABSOLUTE (CALC) 1.19 10/3/uL (0.21-1.20); NEUTROPHILS ABSOLUTE (CALC) 10.88 10/3/uL (2.02-8.40); SEGMENTED NEUTROPHIL (0) 68 %; TOTAL NUCLEATED CELLS 100
[2016-08-24 07:22] LABS: PLATELET ESTIMATE SLT INC (ADEQUATE); ROULEAUX FORMATION 1+
[2016-08-25 06:41] LABS: HEMATOCRIT 24.5 % (40.0-51.0); MEAN CORPUS HGB CONC 32.7 g/dL (32.0-36.0); MEAN CORPUSCULAR HEMOGLOB 26.4 pg (26.0-34.0); MEAN CORPUSCULAR VOLUME 80.9 fL (80-100); MEAN PLATELET VOLUME 8.9 fL (9.2-13.0); PLATELET COUNT 655 10/3/uL (150-400); RBC DISTRIBUTION WIDTH 15.3 % (12.0-16.0); RED CELL COUNT 3.03 10/6/uL (4.7-6.1); WHITE BLOOD CELLS 13.5 10/3/uL (4.5-10.5)
[2016-08-25 06:47] LABS: MANUAL DIFF YES %
[2016-08-25 07:59] LABS: BAND NEUTROPHILS 11 %; BASOPHILS 2 %; BASOPHILS ABSOLUTE (CALC) 0.27 10/3/uL (0.0-0.16); EOSINOPHILS 2 %; EOSINOPHILS ABSOLUTE (CALC) 0.27 10/3/uL (0.0-0.53); IMMATURE GRANS ABSOLUTE (CALC) 0.14 10/3/uL (0.0-0.11); LYMPHOCYTES 18 %; LYMPHOCYTES ABSOLUTE (CALC) 2.43 10/3/uL (0.67-4.30); METAMYELOCYTES 1 %; MONOCYTES 7 %; MONOCYTES ABSOLUTE (CALC) 0.95 10/3/uL (0.21-1.20); NEUTROPHILS ABSOLUTE (CALC) 9.45 10/3/uL (2.02-8.40); SEGMENTED NEUTROPHIL (0) 59 %; TOTAL NUCLEATED CELLS 100
[2016-08-25 08:00] LABS: PLATELET ESTIMATE INC (ADEQUATE); RBC MORPHOLOGY NORM (NORMAL)
[2016-08-25] MEDS ORDERED: ZYVOXPO PO (09:28)
[2016-08-25] MEDS ORDERED: PERCOCET 7.5/321 TAB PO (09:28)
== END 2016-08-25 14:20 | disposition home or self-care (01) | DRG 657 ==
LOC: SDC/OF 10:36 → PACU 18:34 → 4SO 21:39
PROVIDERS: Urology
PROC: 0GT30ZZ Resection of Right Adrenal Gland, Open Approach (ICD-10-PCS; principal; 2016-08-13 12:45)
PROC: 0TB60ZZ Excision of Right Ureter, Open Approach (ICD-10-PCS; principal; 2016-08-13 12:45)
PROC: 0BQR0ZZ (ICD-10-PCS; principal; 2016-08-13 12:45)
PROC: 0TT00ZZ Resection of Right Kidney, Open Approach (ICD-10-PCS; principal; 2016-08-13 12:45)
DX: D30.01 Benign neoplasm of right kidney (principal); K56.7 Ileus, unspecified; K56.60 Unspecified intestinal obstruction; R06.6 Hiccough; I10 Essential (primary) hypertension; F17.210 Nicotine dependence, cigarettes, uncomplicated; Z95.0 Presence of cardiac pacemaker; Z79.899 Other long term (current) drug therapy; Z88.1 Allergy status to other antibiotic agents; R31.0 Gross hematuria; Z88.2 Allergy status to sulfonamides
CPT/HCPCS: 36415; 71010; 74000; 74020; 80048; 80053; 83735; 85014; 85018; 85025; 85610; 85730; 86850; 86900; 86901; 87040; 87493; 87493-59; 88307; 88313; 88341; 88342; 93005; 94002; A9270-GY; J0690; J1170; J2250; J2370; J2405; J2710; J3010; P9045